=== PATIENT | male | born 1980 | race Caucasian/White ===

== ENCOUNTER 2022-06-29 08:25 | Outpatient (REF) | payer OTHER, SELFPAY ==
[2022-06-29 11:48] LABS: MANUAL DIFF FLAG NO
[2022-06-29 11:57] LABS: Basophils Percent Auto 0.9 % (0-2); Eosinophils Absolute Auto 0.1 X10*3/uL (0.0-0.4); Eosinophils Percent Auto 1.6 % (0-4); Hematocrit 42.3 % (42.0-52.0); Hemoglobin 14.9 g/dl (14.0-18.0); Imm Gran Abs Auto 0.01 X10*3/uL (0.00-0.03); Imm Gran Pct Auto 0.2 % (0.0-0.4); Lymphocytes Absolute Auto 1.6 X10*3/uL (1.2-4.9); Lymphocytes Percent Auto 37.3 % (20-40); Mean Corpuscular HGB Conc 35.2 g/dl (31.0-36.0); Mean Corpuscular Hemoglobin 31.8 pg (27.0-33.0); Mean Corpuscular Volume 90.2 fL (80.0-98.0); Mean Platelet Volume 10.5 fL (9.4-12.4); Monocytes Absolute Auto 0.5 X10*3/uL (0.1-1.2); Monocytes Percent Auto 10.8 % (2-11); Neutrophils Absolute Auto 2.2 x10*3/uL (2.0-8.3); Neutrophils Percent Auto 49.2 % (45-73); Platelet Count 229 X10*3/uL (160-400); Red Blood Count 4.69 X10*6/uL (4.60-5.80); Red Cell Distribution Width 11.9 % (11.0-16.0); White Blood Count 4.4 X10*3/uL (4.8-10.8)
[2022-06-29 12:06] LABS: Alanine Aminotransferase 41 U/L (0-40); Albumin Level 4.5 g/dL (3.5-5.0); Alkaline Phosphatase 45 U/L (39-117); Anion Gap 13 (12-20); Aspartate Amino Transferase 75 U/L (5-37); Bilirubin Total 1.9 mg/dL (0.0-1.0); Blood Urea Nitrogen 10 mg/dL (9-16); Calcium 9.6 mg/dL (8.4-10.2); Carbon Dioxide 26 mmol/L (22-29); Chloride 106 mmol/L (96-108); Cholesterol 157 mg/dL; Estimated Glomerular Filt Rate > 60; Glucose Fasting 96 mg/dL (60-99); HDL Cholesterol 42 mg/dL; LDL Cholesterol Calculated 94 mg/dl; Potassium 4.3 mmol/L (3.3-5.1); Sodium 141 mmol/L (135-145); Total Protein 7.3 g/dL (6.5-8.0); Triglycerides 106 mg/dL
== END 2022-06-29 08:26 | disposition home or self-care (01) ==
LOC: HO.HMGCLDS 08:25
PROVIDERS: PCP Internal Medicine; Visit Provider Internal Medicine
DX: Z00.01 Encounter for general adult medical examination with abnormal findings (principal); E66.09 Other obesity due to excess calories
CPT/HCPCS: 36415; 80053; 80061; 84443; 85025

== ENCOUNTER 2022-07-27 08:15 | Outpatient (REF) | payer OTHER, SELFPAY ==
[2022-07-27 11:55] LABS: Ferritin 93 ng/mL (20-250)
[2022-07-29 04:40] LABS: HBS Num1 34.51 mIU/mL (0-7.99); HBc Num1 0.13 S/CO (0.00-0.79); Hepatitis B Core Antibody Nonreactive (Nonreactive); Hepatitis B Surface Antigen Negative (Negative); ~HepC Num1 0.07 S/CO (0.00-0.79); ~Hepatitis B Surface Antibody REACTIVE (Nonreactive); ~Hepatitis C Antibody Nonreactive (Nonreactive)
[2022-07-29 15:22] LABS: Venous Lead <1.0 mcg/dL (<3.5)
[2022-07-29 21:22] LABS: Alpha 1 Anti-trypsin 133 mg/dL (83-199); Ceruloplasmin 22 mg/dL (18-36)
[2022-07-31 05:02] LABS: Hepatitis A Antibody IgM 0.25 Index (0-0.79); ~Hepatitis A Antibody IgM Nonreactive (Nonreactive)
== END 2022-07-27 08:16 | disposition home or self-care (01) ==
LOC: HO.HMGCLDS 08:15
PROVIDERS: PCP Internal Medicine; Visit Provider Internal Medicine
DX: R79.89 Other specified abnormal findings of blood chemistry (principal)
CPT/HCPCS: 36415; 82103; 82390; 82728; 83655; 86704; 86706; 86709; 86803; 87340

== ENCOUNTER 2022-08-13 08:02 | Outpatient (REF) | payer OTHER, SELFPAY ==
--- NOTE | ~2022-08-13 | US_ITS ---
EXAMINATION: US ABDOMEN LIMITED CLINICAL INFORMATION: Other specified abnormal findings of blood chemistry. COMPARISON: None TECHNIQUE: Real-time imaging of the right upper quadrant abdominal viscera. Technically severely limited study secondary to bowel gas. FINDINGS: PANCREAS: Normal. LIVER: The liver is normal in size. The liver contour is normal. Liver echotexture is slightly. No focal hepatic lesion. There is no intrahepatic biliary duct dilatation seen. GALLBLADDER: The gallbladder is not well-visualized . Gallbladder appears contracted. No gallstones are seen. COMMON BILE DUCT: Normal in caliber measuring 0.3 cm in diameter. RIGHT KIDNEY: Normal. No hydronephrosis. No renal calculi or focal parenchymal lesions. The kidney measures 11.4 cm in maximum dimension. FREE FLUID: None. US/US abdomen limited IMPRESSION: Limited exam. Slightly echogenic liver. Gallbladder not well visualized. The gallbladder appears contracted. No gallstones seen.
== END 2022-08-13 08:03 | disposition home or self-care (01) ==
LOC: HO.HMGCX 08:02
PROVIDERS: PCP Internal Medicine; Visit Provider Internal Medicine
DX: R79.89 Other specified abnormal findings of blood chemistry (principal)
CPT/HCPCS: 76705

== ENCOUNTER 2023-07-04 13:21 | Outpatient (AMB) | payer OTHER, SELFPAY ==
--- NOTE | 2023-07-04 13:31 | MHC.PC.OV ---
Vital Signs 07/04/23 13:36 Height 5 ft 11 in Weight 215 lb 8 oz BMI 30.1 BP 128/66 Blood Pressure Location Rt brachial Position Sitting Pulse 73 Pulse Source Pulse Oximeter Pulse Oximetry (%) 98 Oxygen Delivery Method Room Air Intake Visit Reasons: Annual PE Allergies No Known Allergies Allergy (Verified 07/04/23 13:31) Medication List - Last Reconciled 07/04/23 by Bozena Fox MD No Known Home Meds Tobacco use date assessed: 07/04/23 Dental Screening Dental Screen Date: 07/04/23 Did you have a dental visit in the last 12 months?: Yes Did you have a dental problem in the last 6 months where you did not have access to dental care?: No Was dental information given to patient?: No HPI Annual PE HPI Details Patient is 42-year-old gentleman came in today for physical examination Offer no complaints BMI is 30.1 need to lose weight. Last time patient had labs a year ago his liver enzymes were elevated We did ultrasound of abdomen that did not show any abnormality other than some echogenicity of the liver We will be repeating labs again fasting [facility] Social History Housing: House Patient Tobacco Use Status: Never used Tobacco e-Cigarette/Vaping Use: Never Used service: Yes Current occupational status: employed Cognitive needs: No Hearing needs: No Vision needs: No Questionnaire PHQ-9 Over the last 2 weeks, how often have you been bothered by any of the following problems? 1. Little interest or pleasure in doing things: not at all 2. Feeling down, depressed, or hopeless: not at all 3. Trouble falling or staying asleep, or sleeping too much: not at all 4. Feeling tired or having little energy: not at all 5. Poor appetite or overeating: not at all 6. Feeling bad about yourself - or that you are a failure or have let yourself or your family down: not at all 7. Trouble concentrating on things, such as reading the newspaper or watching television: not at all 8. Moving or speaking so slowly that other people could have noticed. Or the opposite - being so fidgety or restless that you have been moving around a lot more than usual: not at all 9. Thoughts that you would be better off or of hurting yourself in some way: not at all Total score: 0 Depression Screening Interpretation: Negative 38450 - PHQ-9 Billing: Yes Source: Developed by Drs. Preston Faith, Rachel Saucedo, Rupert Loredo and colleagues, with an educational peri from [employer]. Thrive Questionnaire Date Thrive assessed: 07/04/23 I am a: Patient What is your living situation today?: I have a steady place to live Within the past 12 months, did the food you bought not last and you didn't have the money to get more?: Never true Within the past 12 months, did you worry whether your food would run out before you got money to buy more?: Never true Do you have trouble paying for medicines?: No Do you have trouble getting transportation to medical appointments?: No Do you have trouble paying your heating and electricity bill?: No Do you have trouble taking care of your child, family member or friend?: No Do you have trouble with day-to-day activities such as bathing, preparing meals, shopping, managing finances, etc.?: No Are you currently unemployed and looking for a job?: No Are you interested in more education?: No AUDIT C Alcohol Use Questionnaire (AUDIT-C) 1. How often do you have a drink containing alcohol?: Monthly or less 2. How many drinks containing alcohol do you have on a typical day when you are drinking?: 1 or 2 3. How often do you have six or more drinks on one occasion?: Never Total Score: 1 Score Reviewed/Action Taken: Yes JOHN-7 AMB Questionnaire JOHN-7 Date JOHN - 7 assessed: 07/04/23 Feeling nervous, anxious, or on edge: 0 = Not at all Not being able to stop or control worryin = Not at all Worrying too much about different things: 0 = Not at all Trouble relaxin = Not at all Being so restless that it is hard to sit still: 0 = Not at all Becoming easily annoyed or irritable: 0 = Not at all Feeling afraid as if something awful might happen: 0 = Not at all Total JOHN-7 score (0-4 normal; 5-9 mild; 10-14 moderate; 15-21 severe): 0 Source: Developed by Drs. Preston Faith, Rachel Saucedo, Rupert Loredo and colleagues, with an educational peri from [employer]. JOHN-7 Assessment Billing JOHN-7 Assessment Tool: OJHN-7 Assessment [id number] Review of Systems Const Denies chills, Denies fever(s) and Denies headache(s) Eyes Denies blurry vision ENT Denies headache(s), Denies nasal discharge, Denies nasal obstruction, Denies odynophagia and Denies sinus pain Card Denies chest pain at rest and Denies chest pain with activity Resp Denies cough and Denies hemoptysis GI Denies diarrhea, Denies odynophagia, Denies vomiting and Denies hematemesis Reports as per HPI Musc Denies abnormal gait Skin/Breast Reports as per HPI Neuro Denies Neuro-related abnormal movements, Denies Abnormal speech present, Denies abnormal gait, Denies headache(s) and Denies Sensory deficit (Neuro) Psych Denies mood swings and Denies paranoia Endo Reports as per HPI Medardo/Lymph Reports as per HPI Aller/Immun Reports as per HPI Physical exam (Primary Care) Vital Signs: Last Vital Signs Pulse 73 07/04/23 13:36 BP 128/66 07/04/23 13:36 Pulse Ox 98 07/04/23 13:36 Oxygen Delivery Method Room Air 07/04/23 13:36 BMI result Body Mass Index 30.1 Tobacco/Smoking Status: Tobacco use Status Tobacco use date assessed 07/04/23 07/04/23 13:31 Patient Tobacco Use Status Never used Tobacco 07/04/23 13:31 e-Cigarette/Vaping Use Never Used 07/04/23 13:31 PHQ-9: PHQ-9 Score PHQ-9: Total score 0 07/04/23 13:51 Depression Screening Interpretation: Negative Thrive Assessment: Date of Thrive Assessment Date Thrive assessed 07/04/23 07/04/23 13:51 Const General: cooperative, comfortable and no acute distress Orientation/consciousness: patient oriented x3 HENMT Head: Yes normocephalic and Yes atraumatic Eyes General: appearance normal, both eyes and all related structures Pupils: Equal, round and reactive pupils present EOM: EOMs intact bilaterally Neck Neck: Yes supple and No lymphadenopathy Thyroid: Thyroid normal Lymphatic: no lymphadenopathy noted Resp Effort & Inspection: normal respiratory effort and able to speak in complete sentences Auscultation: clear to auscultation bilaterally Cardio Heart sounds: S1 normal heart sound present and S2 normal heart sound present GI Palpation (GI): Soft to palpation and nontender Auscultation: normal bowel sounds General: Yes no CVA tenderness Back/Spine/Pelvis Back: no CVA tenderness Skin General skin exam: elasticity normal and turgor normal Neuro Other: Finger-nose test intact General: patient oriented x3 and gait normal Cranial nerves: Yes Equal, round and reactive pupils present Speech: No Abnormal speech present Sensory Exam: No Sensory deficit (Neuro) Coordination: tandem gait normal and Romberg test negative Extrem General: Yes normal exam except as noted and No edema Assessment and Plan Assessment & Plan (1) Encounter for general adult medical examination with abnormal findings: Code(s): Z00.01 - Encounter for general adult medical examination with abnormal findings (2) Obesity due to excess calories: Code(s): E66.09 - Other obesity due to excess calories Qualifiers: Obesity classification: adult class 1 (BMI 30 - 34.9) Serious obesity comorbidity presence: without serious comorbidity Body mass index: BMI 30.0-30.9 Qualified Code(s): E66.09 - Other obesity due to excess calories; Z68.30 - Body mass index [BMI] 30.0-30.9, adult (3) LFT elevation: Code(s): R79.89 - Other specified abnormal findings of blood chemistry Plan Patient is 42-year-old gentleman came in today for physical examination Offer no complaints BMI is 30.1 need to lose weight. Last time patient had labs a year ago his liver enzymes were elevated We did ultrasound of abdomen that did not show any abnormality other than some echogenicity of the liver We will be repeating labs again fasting Orders: Orders Comprehensive [place]. Panel Fast Today E66.09 - Other obesity due to excess calories, R79.89 - Other specified abnormal findings of blood chemistry, Z00.01 - Encounter for general adult medical examination with abnormal findings Lipid Panel Today E66.09 - Other obesity due to excess calories, R79.89 - Other specified abnormal findings of blood chemistry, Z00.01 - Encounter for general adult medical examination with abnormal findings Complete Blood Count Auto Diff Today E66.09 - Other obesity due to excess calories, R79.89 - Other specified abnormal findings of blood chemistry, Z00.01 - Encounter for general adult medical examination with abnormal findings Coding Level of Care Code Est Pt Prev Care 40-64y(30255) Diagnoses Encounter for general adult medical examination with abnormal findings Z00.01 Obesity due to excess calories E66.09; Z68.30 Obesity classification: adult class 1 (BMI 30 - 34.9) Serious obesity comorbidity presence: without serious comorbidity Body mass index: BMI 30.0-30.9 LFT elevation R79.89 Additional Codes JOHN-7 Assessment Billing - JOHN-7 Assessment Tool: JOHN-7 Assessment [id number] ([id number])
[2023-07-04 13:36] VITALS: BP 128/66; PULSE 73; O2SAT 98; BMI 30.1
== END 2023-07-04 14:16 | disposition home or self-care (01) ==
PROVIDERS: PCP Internal Medicine; Visit Provider Internal Medicine
DX: Z00.01 Encounter for general adult medical examination with abnormal findings (principal); E66.09 Other obesity due to excess calories; Z68.30 Body mass index [BMI] 30.0-30.9, adult; R79.89 Other specified abnormal findings of blood chemistry
CPT/HCPCS: 99396

== ENCOUNTER 2023-07-05 08:36 | Outpatient (REF) | payer OTHER, SELFPAY ==
[2023-07-05 11:13] LABS: MANUAL DIFF FLAG NO
[2023-07-05 11:19] LABS: Basophils Percent Auto 0.9 % (0-2); Eosinophils Absolute Auto 0.1 X10*3/uL (0.0-0.4); Eosinophils Percent Auto 2.3 % (0-4); Hemoglobin 14.6 g/dl (14.0-18.0); Imm Gran Abs Auto 0.01 X10*3/uL (0.00-0.03); Imm Gran Pct Auto 0.2 % (0.0-0.4); Lymphocytes Absolute Auto 1.7 X10*3/uL (1.2-4.9); Lymphocytes Percent Auto 40.3 % (20-40); Mean Corpuscular HGB Conc 35.6 g/dl (31.0-36.0); Mean Corpuscular Hemoglobin 32.2 pg (27.0-33.0); Mean Corpuscular Volume 90.5 fL (80.0-98.0); Mean Platelet Volume 10.6 fL (9.4-12.4); Monocytes Absolute Auto 0.5 X10*3/uL (0.1-1.2); Monocytes Percent Auto 10.8 % (2-11); Neutrophils Absolute Auto 1.9 x10*3/uL (2.0-8.3); Neutrophils Percent Auto 45.5 % (45-73); Platelet Count 243 X10*3/uL (160-400); Red Blood Count 4.53 X10*6/uL (4.60-5.80); Red Cell Distribution Width 11.5 % (11.0-16.0); White Blood Count 4.3 X10*3/uL (4.8-10.8)
[2023-07-05 11:42] LABS: Alanine Aminotransferase 22 U/L (0-40); Albumin Level 4.3 g/dL (3.5-5.0); Alkaline Phosphatase 56 U/L (39-117); Anion Gap 13 (12-20); Aspartate Amino Transferase 19 U/L (5-37); Bilirubin Total 0.9 mg/dL (0.0-1.0); Blood Urea Nitrogen 14 mg/dL (9-16); Calcium 9.9 mg/dL (8.4-10.2); Carbon Dioxide 23 mmol/L (22-29); Chloride 108 mmol/L (96-108); Cholesterol 145 mg/dL (<200); Estimated Glomerular Filt Rate > 60; Glucose Fasting 91 mg/dL (60-99); HDL Cholesterol 36 mg/dL (>40); LDL Cholesterol Calculated 77 mg/dL (<100); Potassium 4.2 mmol/L (3.3-5.1); Sodium 140 mmol/L (135-145); Total Protein 7.5 g/dL (6.5-8.0); Triglycerides 164 mg/dL (<150)
== END 2023-07-05 08:37 | disposition home or self-care (01) ==
LOC: HO.HMGCLDS 08:36
PROVIDERS: PCP Internal Medicine; Visit Provider Internal Medicine
DX: Z00.01 Encounter for general adult medical examination with abnormal findings (principal); E66.09 Other obesity due to excess calories; R79.89 Other specified abnormal findings of blood chemistry
CPT/HCPCS: 36415; 80053; 80061; 85025

== ENCOUNTER 2023-07-18 13:26 | Outpatient (AMB) | payer OTHER, SELFPAY ==
--- NOTE | 2023-07-18 13:45 | MHC.OFFWIV ---
Intake Vital Signs 07/18/23 13:54 Height 5 ft 11 in Weight 98.656 kg BMI 30.3 BP 132/88 Blood Pressure Location Lt brachial Position Sitting Pulse 70 Pulse Source Pulse Oximeter Temp 98.1 F Temp Source Oral Pulse Oximetry (%) 98 Oxygen Delivery Method Room Air Intake Visit Reasons: EP, left testicle swelling [phone] Intake Note: Pt is here c/o left testicle swelling. Patient Tobacco Use Status: Never used Tobacco Allergies No Known Allergies Allergy (Verified 07/18/23 13:47) Do you need a note to return to daycare/school/sports/work: No HPI HPI Comments History of Present Illness Details 1433 42-year-old male presents for evaluation of left-sided testicular swelling since Friday, patient reports he had significant discomfort to his left testicle on Friday however discomfort has subsided now only experiencing swelling and discomfort. Also reporting clear/white penile discharge since Friday. History of this ectomy. Denies fevers, chills, nausea, vomiting, abdominal pain, headache, vision changes, dizziness, weakness, chest pain and shortness of breath. No concerns for STD states he is in a monogamous relationship Physical exam significant for Sensitive exam: IRAIS Newman Lorraine at bedside, left scrotal region appears swollen, with possible hydrocele, slight tenderness to palpation to left epididymis. Normal right-sided scrotum, testicle, epididymis. No overlying skin changes, erythema or warmth. This is likely hydrocele versus epididymitis. Possible intermittent torsion. Unlikely acute torsion. No signs of Lei's gangrene or cellulitis. Plan Keflex ultrasound to rule out torsion. Educated patient on diagnosis and treatment plan, answered all question, patient verbalizes understanding. At this time patient will be discharged home, advised to return with new or worsening symptoms. Educated on worrisome signs and symptoms and when to return. At this time I feel comfortable discharge home. [facility] Social History Housing: House Patient Tobacco Use Status: Never used Tobacco e-Cigarette/Vaping Use: Never Used service: Yes Current occupational status: employed Cognitive needs: No Hearing needs: No Vision needs: No Review of Systems Const Details: Constitutional : No Weight loss, No Fever, No Chills, No Fatigue, No Malaise ENT/Mouth : No sore throat, No Rhinorrhea Eyes: No Eye Pain, No Swelling, No Redness Cardiovascular : No Chest Pain, No SOB, No Dyspnea on Exertion, No Orthopnea, No Edema, No Palpitations Respiratory : No Cough, No Sputum, No Wheezing Gastrointestinal : No Nausea, No Vomiting, No Diarrhea, No Constipation, No abdominal Pain, No Hematochezia, No Melena Genitourinary : No Dysuria, No Urinary Frequency, No Hematuria, + scrotal discomfort Musculoskeletal : No joint pain, No Myalgias, No Joint Swelling Skin : No Skin Lesions, No rash Neuro : No Weakness, No Numbness, No Dizziness, No Headache Psych : No Anxiety/Panic, No Depression All other systems reviewed and are negative All systems reviewed & are unremarkable except as noted in HPI and below Physical Exam Vital Signs: Last Vital Signs Temp 98.1 F 07/18/23 13:54 Pulse 70 07/18/23 13:54 BP 132/88 07/18/23 13:54 Pulse Ox 98 07/18/23 13:54 Oxygen Delivery Method Room Air 07/18/23 13:54 BMI result Body Mass Index 30.3 Vital signs stable Appearance: Alert.? Oriented X3.? No acute distress.? Head: Normocephalic, atraumatic, no step-offs or deformities Eyes: Pupils equal, round and reactive to light.? ENT: Pharynx normal.? Neck: Normal inspection.? Neck supple.? CVS: Normal heart rate and rhythm.? Pulses normal.? Respiratory: No respiratory distress.? Breath sounds normal.? Abdomen: Soft and nontender.? Skin: Skin warm and dry.? Normal skin color.? Normal skin turgor.? Extremities: No lower extremity edema.? No calf ttp. 5/5 strength to bilateral upper and lower extremities Back: No midline tenderness, no C-spine tenderness, full range of motion, no CVA tenderness bilaterally Neuro: Oriented X 3.? No motor deficit.? No sensory deficit. CN 2-12 intact Sensitive exam: IRAIS Peters at bedside, left scrotal region appears swollen, with possible hydrocele, slight tenderness to palpation to left epididymis. Normal right-sided scrotum, testicle, epididymis. No overlying skin changes, erythema or warmth. Assessment & Plan Assessment & Plan (1) Testicular pain: Code(s): N50.819 - Testicular pain, unspecified (2) Epididymitis: Code(s): N45.1 - Epididymitis Plan Take your medications as prescribed. If you were prescribed antibiotics today, it is important that you take your medication to their entirety, do not skip any doses, do not finish them early. Follow-up with your primary care provider this week. Return to the emergency department with new or worsening symptoms. Such as fevers, chills, chest pain, shortness of breath, nausea, vomiting, dizziness, headache, vision changes, lethargy In case of emergency call 911 Orders: Orders CT NG by PCR Today N50.819 - Testicular pain, unspecified US scrotum doppler Today N50.82 - Scrotal pain UA CC w/rflx Micro + Cult Today N50.819 - Testicular pain, unspecified Medications: New cephalexin 500 mg PO QID 7 days 28 caps 0RF naproxen 500 mg PO BID PRN 14 tabs 0RF pain Coding Level of Care Code Est Pt Level 3 (37734) Diagnoses Testicular pain N50.819 Epididymitis N45.1
[2023-07-18 13:54] VITALS: BP 132/88; PULSE 70; TEMP 36.7; O2SAT 98; BMI 30.3
== END 2023-07-18 14:49 | disposition home or self-care (01) ==
PROVIDERS: PCP Internal Medicine; Visit Provider Physician Assistant
DX: N50.819 Testicular pain, unspecified (principal); N45.1 Epididymitis
CPT/HCPCS: 99213

== ENCOUNTER 2023-07-18 14:31 | Outpatient (REF) | payer OTHER, SELFPAY ==
--- NOTE | ~2023-07-18 | US_ITS ---
EXAMINATION: US SCROTUM CLINICAL INFORMATION: Scrotal pain. Left testicular swelling since COMPARISON: None available. TECHNIQUE: A sonogram of the scrotum was performed assessing pagan-scale appearance and color Doppler flow. Spectral Doppler analysis of the arterial and venous flow were performed in the testes bilaterally. FINDINGS: RIGHT: Right testicle measures 4.6 x 2.0 x 2.8 cm, volume 13.5 mL. No focal testicular parenchymal lesions are visualized. Spectral Doppler analysis of the arterial and venous flow is normal in the right testis. Right epididymal cysts are seen, largest measures 4 x 4 x 4 mm. Right epididymal head calcifications are also seen measuring in the range of 2 mm. No right hydrocele or varicocele is seen. Right epididymal Doppler flow is normal. LEFT: Left testicle measures 4.1 x 2.1 x 2.9 cm, volume 13.1 mL. No focal testicular parenchymal lesions are visualized. Spectral Doppler analysis of the arterial and venous flow is normal in the left testis. Left epididymal head is normal in size. Small left hydrocele and varicocele. Left epididymal Doppler flow is normal. US/US scrotum doppler IMPRESSION: Unremarkable testes. Right epididymal cysts and calcifications. Small left hydrocele and varicocele.
--- NOTE | ~2023-07-18 | US_ITS ---
EXAMINATION: US SCROTUM CLINICAL INFORMATION: Scrotal pain and swelling. Left testicular swelling since 07/14/2023. COMPARISON: None available. TECHNIQUE: A sonogram of the scrotum was performed assessing pagan-scale appearance and color Doppler flow. Spectral Doppler analysis of the arterial and venous flow were performed in the testes bilaterally. FINDINGS: RIGHT: Right testicle measures 4.6 x 2.0 x 2.8 cm, volume 13.5 mL. No focal testicular parenchymal lesions are visualized. Spectral Doppler analysis of the arterial and venous flow is normal in the right testis. Right epididymal head is normal in size. Some small epididymal cysts are noted, the largest measuring 4 mm. Some calcifications are present in the epididymal head, the largest measuring 2 mm. No right hydrocele or varicocele is seen. Right epididymal Doppler flow is normal. LEFT: Left testicle measures 4.1 x 2.1 x 2.9 cm, volume 13.1 mL. No focal testicular parenchymal lesions are visualized. Spectral Doppler analysis of the arterial and venous flow is normal in the left testis. Left epididymal head is normal in size. Small left hydrocele. There is a small left varicocele with veins as large as 3.3 cm. Left epididymal Doppler flow is normal. US/US scrotum IMPRESSION: Small left varicocele and hydrocele. Testicles appear normal.
[2023-07-18 16:11] LABS: Appearance Urine Clear; Color Urine Yellow; Glucose Urine UA Negative (Negative); Leukocyte Esterase Urine Negative (Negative); Nitrite Urine Negative (Negative); Specific Gravity - Urine <= 1.005 (1.005-1.025); Urine Blood Negative (Negative); Urine Ketones Negative (Negative); Urine Protein Negative (Neg-Trace)
== END 2023-07-18 14:32 | disposition home or self-care (01) ==
LOC: HO.HMGCX 14:31
PROVIDERS: PCP Internal Medicine; Visit Provider Physician Assistant
DX: N50.82 Scrotal pain (principal); N50.819 Testicular pain, unspecified
CPT/HCPCS: 76870; 81003; 93975

== ENCOUNTER 2023-08-08 12:38 | Outpatient (AMB) | payer OTHER, SELFPAY ==
--- NOTE | 2023-08-08 13:39 | MHC.OFFWIV ---
Intake Vital Signs 08/08/23 13:45 Weight 217 lb BP 126/78 Blood Pressure Location Lt brachial Pulse 68 Pulse Source Pulse Oximeter Pulse Oximetry (%) 98 Oxygen Delivery Method Room Air Intake Visit Reasons: EST/right arm injury/[phone] Intake Note: Patient here for right arm injury while working out back in may and has become more bothersome. Patient Tobacco Use Status: Never used Tobacco Allergies No Known Allergies Allergy (Verified 08/08/23 13:39) Do you need a note to return to daycare/school/sports/work: No HPI HPI Comments History of Present Illness Details This is a 42-year-old male who presents to the office today for sick visit. Patient complaining of right upper arm pain since 05/25. patient states he started to notice this pain while he was working out but does not remember a specific injury or traumatic event. He states he did not feel or hear a pop or a crack. He believes he hurt it while he was at the gym. Patient states he rested and avoided the gym for approximately 2 weeks when the pain started. He went back to the gym but his pain returned. He states that the pain has been worsening to the point where he now feels pain with everyday things. He states the pain is tolerable but noticeable. [facility] Social History Housing: House Patient Tobacco Use Status: Never used Tobacco e-Cigarette/Vaping Use: Never Used service: Yes Current occupational status: employed Cognitive needs: No Hearing needs: No Vision needs: No Review of Systems Const All systems reviewed & are unremarkable except as noted in HPI and below Reports no additional complaints Eyes Reports no additional complaints ENT Reports no additional complaints Card Reports no additional complaints Resp Reports no additional complaints GI Reports no additional complaints Reports no additional complaints Musc Reports no additional complaints Skin/Breast Reports system reviewed and no additional complaints, except as documented Neuro Reports no additional complaints Psych Reports no additional complaints Endo Reports no additional complaints Medardo/Lymph Reports no additional complaints Aller/Immun Reports no additional complaints Physical Exam Vital Signs: Last Vital Signs Pulse 68 08/08/23 13:45 BP 126/78 08/08/23 13:45 Pulse Ox 98 08/08/23 13:45 Oxygen Delivery Method Room Air 08/08/23 13:45 Const Other: Vital signs reviewed. Constitutional: Non-toxic appearing. No acute distress. Well-developed and well-nourished. HEENT: Normocephalic and atraumatic. Skin: Warm and dry. No rashes or lesions noted. Neck: Full and painless range of motion. No cervical lymphadenopathy. Cardio: Regular rate. No lower extremity edema. No JVD. Pulmonary: No respiratory distress. No accessory muscle usage. Gastrointestinal: Soft, nontender, and nondistended in all 4 quadrants. Musculoskeletal: Pain located at the right antecubital space with elbow flexion. No bony or focal tenderness to palpation. Neuro: Alert and oriented x4. Cranial nerves 2-12 grossly intact. No focal deficits appreciated. Psych: Normal mood and affect. Assessment & Plan Assessment & Plan (1) Biceps tendinitis: Code(s): M75.20 - Bicipital tendinitis, unspecified shoulder Plan This is a 42-year-old male presenting with right upper arm / elbow pain with elbow flexion x3 months. He states the pain has been progressively worsening though it is tolerable. His history and physical is most consistent with either a distal biceps or brachioradialis tendinitis due to chronic overuse. Very low suspicion for tendon tear or fracture given no palpable deformity, patient has full range of motion, and no acute traumatic injury to the area. Recommended PO ibuprofen 800mg three times daily for anti-inflammatory. Recommend rest/activity modification, ice to the area, and elevation of the extremity. Continue with acetaminophen/ibuprofen for pain management as long as patient has no medical contraindications. PT referral was recommended and offered but patient declined at this time as he will be travelling for work from 08/27-09/27. He will obtain a PT referral once he returns home if his symptoms have persisted. Patient was advised to follow up here or go to the ER for persistent/worsening symptoms. Patient verbalized understanding and is agreeable with the plan. Medications: New ibuprofen Take with food. 800 mg PO Q8H 90 tabs 0RF Coding Level of Care Code Est Pt Level 3 (91840) Diagnoses Biceps tendinitis M75.20
[2023-08-08 13:45] VITALS: BP 126/78; PULSE 68; O2SAT 98
== END 2023-08-08 14:28 | disposition home or self-care (01) ==
PROVIDERS: PCP Internal Medicine; Visit Provider Physician Assistant Medical
DX: M75.20 Bicipital tendinitis, unspecified shoulder (principal)
CPT/HCPCS: 99213

== ENCOUNTER 2023-08-20 08:18 | Outpatient (AMB) | payer OTHER, SELFPAY ==
[2023-08-20 08:25] VITALS: BP 120/82; PULSE 62; O2SAT 98; BMI 30.7
--- NOTE | 2023-08-20 08:25 | MHC.PC.OV ---
Vital Signs 08/20/23 08:25 Height 5 ft 11 in Weight 220 lb 2 oz BMI 30.7 BP 120/82 Blood Pressure Location Rt brachial Position Sitting Pulse 62 Pulse Source Pulse Oximeter Pulse Oximetry (%) 98 Oxygen Delivery Method Room Air Intake Visit Reasons: Scrotal pain fu Allergies No Known Allergies Allergy (Verified 08/20/23 08:26) Medication List - Last Reconciled 08/20/23 by Bozena Fox MD ibuprofen 800 mg PO Q8H Tobacco use date assessed: 08/20/23 Dental Screening Dental Screen Date: 08/20/23 Did you have a dental visit in the last 12 months?: Yes Did you have a dental problem in the last 6 months where you did not have access to dental care?: No Was dental information given to patient?: Patient has dentist HPI Scrotal pain fu HPI Details Patient is 42-year-old gentlemen who has been having discomfort left testes off and on He was evaluated in walk-in clinic in July where he the ultrasound of scrotum was ordered which showed varicocele and hydrocele left side At that visit he was also having discharge from the penis which he is not having today He was also prescribed cephalexin and naproxen during that visit which helped. He is requesting arm referral to Urology which I have placed for the patient He is leaving out of country end of this month until end of September. I have sent cephalexin and naproxen that he can take along during travel just in case if he start having penile discharge and more pain he can take the antibiotic. Otherwise patient is to follow-up with Urology. Scrotal exam was not done today as patient felt there is no need for that. [facility] Social History Housing: House Patient Tobacco Use Status: Never used Tobacco e-Cigarette/Vaping Use: Never Used service: Yes Current occupational status: employed Cognitive needs: No Hearing needs: No Vision needs: No Questionnaire PHQ-9 Over the last 2 weeks, how often have you been bothered by any of the following problems? 1. Little interest or pleasure in doing things: not at all 2. Feeling down, depressed, or hopeless: not at all 3. Trouble falling or staying asleep, or sleeping too much: not at all 4. Feeling tired or having little energy: not at all 5. Poor appetite or overeating: not at all 6. Feeling bad about yourself - or that you are a failure or have let yourself or your family down: not at all 7. Trouble concentrating on things, such as reading the newspaper or watching television: not at all 8. Moving or speaking so slowly that other people could have noticed. Or the opposite - being so fidgety or restless that you have been moving around a lot more than usual: not at all 9. Thoughts that you would be better off or of hurting yourself in some way: not at all Total score: 0 Depression Screening Interpretation: Negative Depression Screening Done: Yes 35991 - PHQ-9 Billing: Yes Source: Developed by Drs. Preston Faith, Rachel Saucedo, Rupert Loredo and colleagues, with an educational peri from [employer]. Thrive Questionnaire Date Thrive assessed: 08/20/23 I am a: Patient What is your living situation today?: I have a steady place to live Within the past 12 months, did the food you bought not last and you didn't have the money to get more?: Never true Within the past 12 months, did you worry whether your food would run out before you got money to buy more?: Never true Do you have trouble paying for medicines?: No Do you have trouble getting transportation to medical appointments?: No Do you have trouble paying your heating and electricity bill?: No Do you have trouble taking care of your child, family member or friend?: No Do you have trouble with day-to-day activities such as bathing, preparing meals, shopping, managing finances, etc.?: No Are you currently unemployed and looking for a job?: No AUDIT C Alcohol Use Questionnaire (AUDIT-C) 1. How often do you have a drink containing alcohol?: Monthly or less 2. How many drinks containing alcohol do you have on a typical day when you are drinking?: 1 or 2 3. How often do you have six or more drinks on one occasion?: Never Total Score: 1 Score Reviewed/Action Taken: Yes JOHN-7 AMB Questionnaire JOHN-7 Date JOHN - 7 assessed: 08/20/23 Feeling nervous, anxious, or on edge: 0 = Not at all Not being able to stop or control worryin = Not at all Worrying too much about different things: 0 = Not at all Trouble relaxin = Not at all Being so restless that it is hard to sit still: 0 = Not at all Becoming easily annoyed or irritable: 0 = Not at all Feeling afraid as if something awful might happen: 0 = Not at all Total JOHN-7 score (0-4 normal; 5-9 mild; 10-14 moderate; 15-21 severe): 0 Source: Developed by Drs. Preston Faith, Rachel Saucedo, Rupert Loredo and colleagues, with an educational peri from [employer]. JOHN-7 Assessment Billing JOHN-7 Assessment Tool: JOHN-7 Assessment 17391 Review of Systems Const Denies chills and Denies fever(s) ENT Denies epistaxis and Denies nasal discharge Card Denies chest pain Resp Denies chest congestion, Denies cough and Denies hemoptysis GI Denies diarrhea and Denies nausea Skin/Breast Denies rash Neuro Reports no additional complaints Psych Reports no additional complaints Endo Reports no additional complaints Physical exam (Primary Care) Vital Signs: Last Vital Signs Pulse 62 08/20/23 08:25 BP 120/82 08/20/23 08:25 Pulse Ox 98 08/20/23 08:25 Oxygen Delivery Method Room Air 08/20/23 08:25 BMI result Body Mass Index 30.7 Tobacco/Smoking Status: Tobacco use Status Tobacco use date assessed 08/20/23 08/20/23 08:26 Patient Tobacco Use Status Never used Tobacco 08/20/23 08:26 e-Cigarette/Vaping Use Never Used 08/20/23 08:26 PHQ-9: PHQ-9 Score PHQ-9: Total score 0 08/20/23 08:45 Depression Screening Interpretation: Negative Thrive Assessment: Date of Thrive Assessment Date Thrive assessed 08/20/23 08/20/23 08:45 Const General: cooperative, comfortable and no acute distress Orientation/consciousness: patient oriented x3 HENMT Head: Yes normocephalic Eyes General: appearance normal, both eyes and all related structures Neck Neck: Yes supple Resp Effort & Inspection: normal respiratory effort, no cough and no stridor Skin General skin exam: turgor normal Neuro General: patient oriented x3, tone normal and moves all extremities Assessment and Plan Assessment & Plan (1) Hydrocele of testis: Code(s): N43.3 - Hydrocele, unspecified (2) Testicular disorder: Code(s): N50.9 - Disorder of male genital organs, unspecified Plan Patient is 42-year-old gentlemen who has been having discomfort left testes off and on He was evaluated in walk-in clinic in July where he the ultrasound of scrotum was ordered which showed varicocele and hydrocele left side At that visit he was also having discharge from the penis which he is not having today He was also prescribed cephalexin and naproxen during that visit which helped. He is requesting arm referral to Urology which I have placed for the patient He is leaving out of country end of this month until end of September. I have sent cephalexin and naproxen that he can take along during travel just in case if he start having penile discharge and more pain he can take the antibiotic. Otherwise patient is to follow-up with Urology. Scrotal exam was not done today as patient felt there is no need for that. Orders: Referrals Urology Referral N43.3 - Hydrocele, unspecified, N50.9 - Disorder of male genital organs, unspecified Medications: Refilled cephalexin 500 mg PO QID 28 caps 0RF 7 days naproxen 500 mg PO BID PRN 14 tabs 0RF pain Coding Level of Care Code Est Pt Level 3 (53272) Diagnoses Hydrocele of testis N43.3 Testicular disorder N50.9 Additional Codes JOHN-7 Assessment Billing - JOHN-7 Assessment Tool: JOHN-7 Assessment 69507 ([id number])
== END 2023-08-20 08:58 | disposition home or self-care (01) ==
PROVIDERS: PCP Internal Medicine; Visit Provider Internal Medicine
DX: N43.3 Hydrocele, unspecified (principal); N50.9 Disorder of male genital organs, unspecified
CPT/HCPCS: 99213